=== PATIENT | female | born 1955 | race Caucasian/White ===

== ENCOUNTER 2019-01-17 00:29 | Emergency (ER) | payer MEDICAID ==
[~2019-01-17] VITALS: Ht 167.6 cm; Wt 105.0 kg
[2019-01-17] MEDS ORDERED: ALBUTEROL (0.083%) 2.5MG/3ML NEB HHN STA (07:05)
[2019-01-17] MEDS ORDERED: ONDANSETRON HCL 4MG/2ML INJ IV STA (07:06)
[2019-01-17] MEDS ORDERED: KETOROLAC 30MG/ML VIAL IV STA (07:06)
[2019-01-17] MEDS ORDERED: SODIUM CHLORIDE 0.9% 1,000 ML IV ONE (07:06)
[2019-01-17 08:31] LABS: BASOPHILS % 0.5 % (0.0-2.0); HEMOGLOBIN. 12.9 g/dL (12.0-16.0); LYMPHOCYTES % 27.8 % (20.0-50.0); MEAN CORPUSCULAR HEMOGLOBIN 31.7 pg (28.0-32.0); MEAN CORPUSCULAR VOLUME 95.8 fL (81.0-99.0); MEAN PLATELET VOLUME 8.6 fl (7.4-10.4); MONOCYTES % 12.7 % (2.0-8.0); PLATELET 144 x1000/uL (130-400); RED BLOOD CELL COUNT 4.07 mill/uL (4.2-5.4); RED CELL DISTRIBUTION WIDTH 13.4 % (11.6-14.6)
[2019-01-17 08:37] LABS: CHLORIDE 100 mEq/L (98-107)
[2019-01-17] MEDS ORDERED: ACETAMINOPHEN 325MG TABLET PO ONE (08:45)
[2019-01-17 09:20] VITALS: BP 142/79
== END 2019-01-17 09:23 | disposition home or self-care (01) ==
LOC: ER 01:00
DX: B34.9 Viral infection, unspecified (principal); F41.9 Anxiety disorder, unspecified; J45.909 Unspecified asthma, uncomplicated; E11.9 Type 2 diabetes mellitus without complications; M79.7 Fibromyalgia; M19.90 Unspecified osteoarthritis, unspecified site; Z88.0 Allergy status to penicillin; Z98.51 Tubal ligation status
CPT/HCPCS: 36415; 71045; 80053; 84484; 85025; 93005; 94640; 99284; J1885; J2405; J7030; J7611; Z7610

== ENCOUNTER 2019-12-01 15:32 | Emergency (ER) | payer MEDICARE, MEDICAID ==
[~2019-12-01] VITALS: Ht 172.7 cm; Wt 96.0 kg
[2019-12-01] MEDS ORDERED: KETOROLAC 30MG/ML VIAL IV STA (16:31)
[2019-12-01] MEDS ORDERED: HYDROCODONE/ACETAMINOPHEN 5/325MG TABLET PO STA (16:35)
[2019-12-01 17:15] LABS: BASOPHILS % 0.2 % (0.0-2.0); EOSINOPHILS % 1.2 % (0.0-5.0); HEMATOCRIT. 38.7 % (36.0-48.0); LYMPHOCYTES % 24.2 % (20.0-50.0); MEAN CORPUSCULAR HEMOGLOBIN 32.3 pg (28.0-32.0); MEAN CORPUSCULAR VOLUME 95.7 fL (81.0-99.0); MEAN PLATELET VOLUME 8.5 fl (7.4-10.4); MONOCYTES % 6.1 % (2.0-8.0); NEUTROPHILS % 68.3 % (40.0-76.0); PLATELET 210 x1000/uL (130-400); RED BLOOD CELL COUNT 4.04 mill/uL (4.2-5.4); RED CELL DISTRIBUTION WIDTH 12.8 % (11.6-14.6)
[2019-12-01 17:17] LABS: CHLORIDE 99 mEq/L (98-107)
[2019-12-01] MEDS ORDERED: IOHEXOL-300 100 ML BOTTLE ONE (18:45)
[2019-12-01 20:42] VITALS: BP 146/78
== END 2019-12-01 20:43 | disposition home or self-care (01) ==
LOC: ER 15:32
DX: S16.1XXA Strain of muscle, fascia and tendon at neck level, initial encounter (principal); S20.211A Contusion of right front wall of thorax, initial encounter; V49.59XA Passenger injured in collision with other motor vehicles in traffic accident, initial encounter; Y93.89 Activity, other specified; Y92.89 Other specified places as the place of occurrence of the external cause; Y99.8 Other external cause status; M25.511 Pain in right shoulder; M25.561 Pain in right knee; Z88.0 Allergy status to penicillin
CPT/HCPCS: 36415; 71046; 73030; 73560; 74177; 80053; 84484; 85025; 93005; 96374; 99284; J1885; Q9967